=== PATIENT | female | born 1990 | race Hispanic/Latino ===

== ENCOUNTER 2018-03-11 20:58 | Emergency (ER) | payer SELFPAY ==
[2018-03-11 21:11] VITALS: BP 139/79
[2018-03-11] MEDS ORDERED: PROVENTIL IH ONE (21:13)
[2018-03-11] MEDS ORDERED: ATROVENT IH ONE (21:14)
== END 2018-03-12 00:55 | disposition left against medical advice (07) ==
LOC: ED 20:58
DX: J45.909 Unspecified asthma, uncomplicated (principal); Z53.21 Procedure and treatment not carried out due to patient leaving prior to being seen by health care provider
CPT/HCPCS: 94644